=== PATIENT | male | born 1945 | race Hispanic/Latino ===

== ENCOUNTER 2017-10-29 10:49 | Observation (INO) | payer MEDICARE, BC ==
--- NOTE | 2017-10-29 11:41 | ED PDOC ---
HPI:STROKE - Time Time: 11:09 - Historian Historian: Patient - Chief Complaint Chief Complaint: Numbness - Onset Date: 10/20/17 Time: 15:00 - Timing Timing: Improved - TPA Positive for Contraindication: Yes Reason tPA is not being Administered: Out of window treatment - Notes: Notes:: Pt. with numbness and tingles to left upper and low lip and lower face around the lips. Pt. with no pain, weakness, headaches, dizziness, vision changes. No leg pain pain. L fingers also get the tingles when lips gets it. No abd pain, chest pain, dyspnea. Symptoms off and on sporadically and no trigger. Lasts 30 min. NIHSS Stroke Scale - Date/Time Evaluation Performed Date Performed: 10/29/17 Time Performed: 11:41 When Was NIHSS Performed: Baseline - How Severe is the Stroke Level of Consciousness: 0=Alert LOC to Questions: 0=Both comments correct LOC to commands: 0=Obeys both correctly Best Gaze: 0=Normal Facial: 0=Normal Motor Arm - Left: 0=No drift Motor Arm - Right: 0=No drift Motor Leg - Left: 0=No drift Motor Leg - Right: 0=No drift Limb Ataxia: 0=Absent Sensory: 0=Normal Best Language: 0=No aphasia Dysarthia: 0=Normal articulation Extinction & Inattention (Neglect): 0=Normal, no object rTPA Inclusion/Exclusion - Refusal of Treatment Patient Refused Treatment: No - Inclusion Criteria for Altepase Patient is 18 years or Older: Yes The Clinical Diagnosis of Ischemic Stroke That is Causing a Potentially Disabling Neurological Deficit: No Time of Onset is Well Established to be Less Than 270 Minute Before Treatment Would Begin: No Risk/Benefit Discussed With Patient/Family Member Present: No Past Medical History Reviewed: Nursing Documentation, Vital Signs Vital Signs: Last Vital Signs Temp 98.3 F 10/29/17 11:08 Pulse 95 H 10/29/17 11:08 Resp 20 10/29/17 11:08 BP 147/85 10/29/17 11:08 Pulse Ox 98 10/29/17 11:08 - Medical History PMH: Diabetes, HTN (hx), Hyperlipidemia - Surgical History Surgical History: No Surg Hx - Family History Family History: States: Unknown Family Hx - Living Arrangements Living Arrangements: With Family - Social History Alcohol: None Drugs: Denies - Immunization History Hx Tetanus Toxoid Vaccination: No Hx Influenza Vaccination: No - Allergies Allergies/Adverse Reactions: Allergies Allergy/AdvReac Type Severity Reaction Status Date / Time No Known Allergies Allergy Verified 10/29/17 11:30 Review of Systems ROS Statement: Except As Marked, All Systems Reviewed And Found Negative Neurological: Positive for: Numbness Physical Exam - Reviewed Nursing Documentation Reviewed: Yes Vital Signs Reviewed: Yes - Physical Exam Appears: Positive for: Non-toxic, No Acute Distress Head Exam: Positive for: ATRAUMATIC, NORMAL INSPECTION, NORMOCEPHALIC Skin: Positive for: Normal Color, Warm, DRY Eye Exam: Positive for: EOMI, Normal appearance, PERRL ENT: Positive for: Normal ENT Inspection Neck: Positive for: Normal, Painless ROM Cardiovascular/Chest: Positive for: Regular Rate, Rhythm Respiratory: Positive for: CNT, Normal Breath Sounds Gastrointestinal/Abdominal: Positive for: Normal Exam, Bowel Sounds, Soft. Negative for: Tenderness Back: Positive for: Normal Inspection. Negative for: L CVA Tenderness, R CVA Tenderness Extremity: Positive for: Normal ROM. Negative for: Tenderness, Pedal Edema Neurologic/Psych: Positive for: Alert, it communications specialist II-XII, Oriented. Negative for: Motor/Sensory Deficits, Aphasia, Facial Droop - Laboratory Results Result Diagrams: 10/29/17 11:48 10/29/17 11:48 Interpretation Of Abn Labs: 34 bun - ECG ECG: Positive for: Interpreted By Me, Viewed By Me ECG Rhythm: Positive for: Normal QRS, Normal ST Segment, Sinus Rhythm O2 Sat by Pulse Oximetry: 98 Pulse Ox Interpretation: Normal - Radiology X-Ray: Read By Radiologist X-Ray Interpretation: No Acute Disease - CT Scan/US ct Other Rad Studies (CT/US): Read By Radiologist Other Rad Interpretation: no acute - Progress ED Course And Treament: 1447: Spoke with Dr. Guevara. Will admit tele. Pt. with no symptoms currently. AAOx3. Disposition - Clinical Impression Clinical Impression: TIA (transient ischemic attack), Dehydration - Patient ED Disposition Is Patient to be Admitted: Yes Counseled Patient/Family Regarding: Studies Performed, Diagnosis - Disposition Disposition Time: 14:00 Condition: FAIR - Pt Status Changed To: Hospital Disposition Of: Observation - POA Present On Arrival: Poor Glycemic Control (mild)
[2017-10-29] MEDS: Sodium Chloride 0.9% 1,000 ML IV SCH ×3 (11:51→15:51)
[2017-10-29 12:34] LABS: BASO # 0.1 K/uL (0.0-0.2); BASO % 1.2 % (0.0-2.0); EOS # 0.3 K/uL (0.0-0.7); EOS % 3.5 % (0.0-4.0); HEMOGLOBIN 14.5 g/dL (12.0-18.0); LYMPH # 1.6 K/uL (1.0-4.3); LYMPH % 19.3 % (20.0-40.0); MEAN CORPUSCULAR HEMOGLOBIN 30.7 pg (27.0-31.0); MEAN CORPUSCULAR HGB CONC 34.1 g/dL (33.0-37.0); MEAN PLATELET VOLUME 7.8 fl (7.2-11.7); MONO # 0.5 K/uL (0.0-0.8); MONO % 6.3 % (0.0-10.0); NEUT # 5.8 K/uL (1.8-7.0); NEUT % 69.7 % (50.0-75.0); NRBC % 0.1 % (0.0-0.0); RBC 4.72 Mil/uL (4.40-5.90); RED CELL DISTRIBUTION WIDTH 12.9 % (11.5-14.5); WHITE BLOOD COUNT 8.3 K/uL (4.8-10.8)
--- NOTE | 2017-10-29 12:37 | CT ---
PROCEDURE: CT HEAD WITHOUT CONTRAST. HISTORY: eval for tia COMPARISON: None available. TECHNIQUE: Axial computed tomography images were obtained through the head/brain without intravenous contrast. Radiation dose: Total exam DLP = 1023.53 mGy-cm. This CT exam was performed using one or more of the following dose reduction techniques: Automated exposure control, adjustment of the mA and/or kV according to patient size, and/or use of iterative reconstruction technique. FINDINGS: HEMORRHAGE: No intracranial hemorrhage. BRAIN: No mass effect or edema. No atrophy or chronic microvascular ischemic changes. Widened CSF space in the midline posterior fossa representing either giant cisterna magna or arachnoid cyst. VENTRICLES: Unremarkable. No hydrocephalus. CALVARIUM: Unremarkable. PARANASAL SINUSES: Unremarkable as visualized. No significant inflammatory changes. MASTOID AIR CELLS: Unremarkable as visualized. No inflammatory changes. OTHER FINDINGS: None. IMPRESSION: No intracranial mass, hemorrhage or evidence of acute infarct. 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 Otherwise unremarkable examination
[2017-10-29 12:46] LABS: PARTIAL THROMBOPLASTIN TIME 33.2 Seconds (25.6-37.1)
[2017-10-29 12:50] LABS: ALB/GLOB RATIO 1.3 (1.0-2.1); ALBUMIN 4.2 g/dL (3.5-5.0); ALT/SGPT 35 U/L (21-72); AST/SGOT 39 U/L (17-59); BLOOD UREA NITROGEN 34 mg/dl (9-20); CALCIUM 9.8 mg/dL (8.4-10.2); GFR AFRICAN-AMERICAN > 60; GFR NON-AFRICAN AMERICAN 55; HDL CHOLESTEROL 37 MG/DL (30-70)
[2017-10-29 13:01] LABS: LDL CHOLESTEROL 89 mg/dL (0-129)
--- NOTE | 2017-10-29 13:10 | RAD ---
HISTORY: Code Stroke COMPARISON: No prior. FINDINGS: LUNGS: No active pulmonary disease. PLEURA: No significant pleural effusion identified, no pneumothorax apparent. CARDIOVASCULAR: Normal. OSSEOUS STRUCTURES: No significant abnormalities. VISUALIZED UPPER ABDOMEN: Normal. OTHER FINDINGS: None. IMPRESSION: No active disease.
--- NOTE | 2017-10-29 16:01 | CP.PCM.HP ---
History of Present Illness - History of Present Illness History of Present Illness: 72 y/o M with PMHx of DM, hyperlipidemia and HTN presented to ED c/o facial tingling around the lips and to less extent to the finger on the L/hand. Patient has had this symptoms for the past week but was getting worse. He admits similar symptoms in the past in the lips after dental procedures. Denies headache, weakness, blurry vision, CP, SOB. At the time of my exam paresthesias were almost completely resolved as per patient. He takes Glimepiride and Tricor and has not been on HTN meds for many years. Patient has been living in the area for only 1 year and has no PMD at this time. Present on Admission - Present on Admission Any Indicators Present on Admission: No Review of Systems - Review of Systems All systems: reviewed and no additional remarkable complaints except - Neurological Neurological: Paresthesias Past Patient History - Past Social History Alcohol: None Drugs: Denies - CARDIAC Hx Hypertension: Yes (hx) - ENDOCRINE/METABOLIC Hx Diabetes Mellitus Type 1: Yes - PSYCHIATRIC Hx Substance Use: No - SURGICAL HISTORY Hx Surgeries: Yes Hx Cholecystectomy: Yes Other/Comment: Urethra reconstruction. Chelecystectomy - ANESTHESIA Hx Anesthesia: Yes Hx Anesthesia Reactions: No Hx Malignant Hyperthermia: No Meds Allergies/Adverse Reactions: Allergies Allergy/AdvReac Type Severity Reaction Status Date / Time No Known Allergies Allergy Verified 10/29/17 11:30 Physical Exam - Constitutional Appears: Non-toxic, No Acute Distress - Head Exam Head Exam: ATRAUMATIC, NORMAL INSPECTION - Eye Exam Eye Exam: EOMI, Normal appearance, PERRL. absent: Nystagmus - ENT Exam ENT Exam: Mucous Membranes Moist - Neck Exam Neck exam: Positive for: Normal Inspection. Negative for: Tenderness - Respiratory Exam Respiratory Exam: Clear to Auscultation Bilateral, NORMAL BREATHING PATTERN. absent: Rales, Wheezes - Cardiovascular Exam Cardiovascular Exam: REGULAR RHYTHM, +S1, +S2. absent: Gallop - GI/Abdominal Exam GI & Abdominal Exam: Normal Bowel Sounds, Soft. absent: Firm, Rebound, Rigid, Tenderness - Extremities Exam Extremities exam: Positive for: full ROM. Negative for: calf tenderness, pedal edema, tenderness - Back Exam Back exam: absent: CVA tenderness (L), CVA tenderness (R) - Neurological Exam Neurological exam: Alert, CN II-XII Intact, Normal Gait, Oriented x3 - Psychiatric Exam Psychiatric exam: Normal Affect, Normal Mood - Skin Skin Exam: Normal Color, Warm Results - Vital Signs Recent Vital Signs: Last Vital Signs Temp 98.5 F 10/29/17 15:48 Pulse 78 10/29/17 15:48 Resp 16 10/29/17 15:48 BP 138/86 10/29/17 15:48 Pulse Ox 98 10/29/17 15:48 - Labs Result Diagrams: 10/30/17 04:20 10/30/17 04:20 Labs: Laboratory Results - last 24 hr 10/29/17 10/29/17 10/29/17 11:08 11:48 11:48 WBC 8.3 RBC 4.72 Hgb 14.5 Hct 42.5 MCV 90.0 MCH 30.7 MCHC 34.1 RDW 12.9 Plt Count 304 MPV 7.8 Neut % (Auto) 69.7 Lymph % (Auto) 19.3 L [place] % (Auto) 6.3 Eos % (Auto) 3.5 Baso % (Auto) 1.2 Neut # (Auto) 5.8 Lymph # (Auto) 1.6 [place] # (Auto) 0.5 Eos # (Auto) 0.3 Baso # (Auto) 0.1 PT INR APTT Sodium 142 Potassium 4.1 Chloride 101 Carbon Dioxide 26 Anion Gap 19 BUN 34 H Creatinine 1.3 Est GFR ( Amer) > 60 Est GFR (Non-Af Amer) 55 POC Glucose (mg/dL) 196 H Random Glucose 195 H Hemoglobin A1c Calcium 9.8 Total Bilirubin 0.6 AST 39 ALT 35 Alkaline Phosphatase 138 H Troponin I < 0.0120 Total Protein 7.5 Albumin 4.2 Globulin 3.3 Albumin/Globulin Ratio 1.3 Triglycerides 257 H Cholesterol 188 LDL Cholesterol Direct 89 HDL Cholesterol 37 Blood Type Antibody Screen BBK History Checked 10/29/17 10/29/17 10/29/17 11:48 11:48 11:48 WBC RBC Hgb Hct MCV MCH MCHC RDW Plt Count MPV Neut % (Auto) Lymph % (Auto) [place] % (Auto) Eos % (Auto) Baso % (Auto) Neut # (Auto) Lymph # (Auto) [place] # (Auto) Eos # (Auto) Baso # (Auto) PT 11.0 INR 1.0 APTT 33.2 Sodium Potassium Chloride Carbon Dioxide Anion Gap BUN Creatinine Est GFR ( Amer) Est GFR (Non-Af Amer) POC Glucose (mg/dL) Random Glucose Hemoglobin A1c 6.4 Calcium Total Bilirubin AST ALT Alkaline Phosphatase Troponin I Total Protein Albumin Globulin Albumin/Globulin Ratio Triglycerides Cholesterol LDL Cholesterol Direct HDL Cholesterol Blood Type O POSITIVE Antibody Screen Negative BBK History Checked No verified bt Assessment & Plan - Assessment and Plan (Free Text) Assessment: TIA CT of the head no ischemia Neurology consult appreciated: Will F/U recs VS stable Restart home meds S/P ASA 325 mg once at ED NIDDM Controlled HgbA1c 6.4 C/w current treatment HTN Controlled Monitor
--- NOTE | 2017-10-29 18:11 | MRI ---
PROCEDURE: MRI BRAIN WITHOUT CONTRAST HISTORY: TIA COMPARISON: None. TECHNIQUE: Multiplanar, multisequence MR images of the brain were obtained without intravenous contrast enhancement. FINDINGS: HEMORRHAGE: None DWI: No evidence of an acute or early subacute infarction. BRAIN PARENCHYMA: No mass effect or edema. No significant atrophy. There is mild periventricular white matter signal abnormality on FLAIR images as well as patchy foci of deep and subcortical white matter signal abnormality, consistent with microvascular ischemic change. There is also bilateral pontine white matter ischemic change. VENTRICLES: Unremarkable. No hydrocephalus. CRANIUM: Unremarkable. ORBITS: Grossly unremarkable. PARANASAL SINUSES/MASTOIDS: There is chronic bilateral maxillary sinusitis VASCULAR SYSTEM: Skull base flow voids intact. OTHER FINDINGS: None. IMPRESSION: No evidence of acute infarct. No intracranial mass or hemorrhage. Chronic white matter ischemic change. bilateral.
[2017-10-29] MEDS ORDERED: Glucagon Recombinant 1 mg Inj IM PRN (19:10)
[2017-10-29] MEDS ORDERED: Dextrose 50% SYRINGE Inj (50 ml) IVP PRN (19:10)
--- NOTE | 2017-10-29 20:19 | CON ---
NEUROLOGY CONSULT DATE: 10/29/2017 CHIEF COMPLAINT: Left facial numbness. HISTORY OF PRESENT ILLNESS: This is a 72-year-old man with a past medical history of hypertension, dyslipidemia and diabetes, who presented with numbness and tingling of the left upper and lower lip and left lower half of the face which was sporadic and no triggers. Symptoms last about 30 minutes. He currently denies any pronator drift, no focal muscle weakness. No changes in sense, vision, taste or smell. His A1c is 6.4. Triglycerides levels are elevated at 287 for which he is placed on Tricor. MRI of the brain showed no acute intracranial abnormality. He is currently stable. He had some mild elevation of the diastolic blood pressure, but otherwise he is stable at this time. He is on aspirin 81 mg for stroke prevention. He walking around without any difficulties. He is eating and swallowing water without any difficulties. PAST MEDICAL HISTORY: Type 2 diabetes mellitus, hypertension, and dyslipidemia. REVIEW OF SYSTEMS: A 14-point review of systems negative except in the HPI. SOCIAL HISTORY: No illicit drug use, smoking or EtOH abuse. FAMILY HISTORY: Noncontributory. MEDICATIONS: Reviewed by nurse reconciliation sheet. PHYSICAL EXAMINATION: VITAL SIGNS: Temperature 98.5, pulse rate 78, blood pressure 138/86, respiratory rate of 16 and oxygen saturation 98% by room air. GENERAL: Patient is sitting up in bed, in no acute distress. HEENT: Atraumatic and normocephalic. PERRLA. Extraocular muscles intact. NECK: Supple. No JVD, no adenopathy noted. LUNGS: Clear to auscultation. No adventitious sounds. HEART: S1 and S2, normal rate and rhythm. No murmurs, rubs or gallops. ABDOMEN: Soft, nontender and nondistended. Bowel sounds are present. EXTREMITIES: No clubbing. No cyanosis. Peripheral pulses 2+ felt bilaterally. NEUROLOGIC: The patient is alert and oriented to person, place, month and year. Speech is fluent without errors. Cranial nerves II through XII are intact. Motor exam: Moves all extremities equally. No pronator drift seen. Sensory exam: Light touch, pinprick and proprioception are intact bilaterally. DTRs are 2+ throughout. Coordination: Luiaqk-bo-yntd intact. Gait is normal. LABORATORY DATA: Sodium is 142, potassium 4.1, chloride 101, carbon-dioxide 26, BUN of 34, creatinine 1.3 and random glucose 195. A1c is 6.4. Triglyceride is 257, LDL is 89 and cholesterol is 188. ASSESSMENT AND PLAN: A 72-year-old man with history of hypertension, dyslipidemia, type 2 diabetes mellitus, hypertriglyceridemia. He had transient numbness of the left face likely secondary to mild diastolic hypertension. Otherwise, no focal deficits on examination. MRI of the brain showed no acute intracranial abnormality, likely his symptoms were a transient ischemic event. Recommend aspirin 81 mg, Lipitor 40 mg and Tricor for his hypertriglyceridemia and he is stable to go home once seen by PMD. Thank you for this consult. Warren Reyes MD
--- NOTE | 2017-10-30 02:53 | CARD ---
APPROVED REPORT EKG Measurement Heart [id number] <Conclusion> Normal sinus rhythm Normal ECG
[2017-10-30 05:35] LABS: BASO # 0.1 K/uL (0.0-0.2); BASO % 1.2 % (0.0-2.0); EOS # 0.3 K/uL (0.0-0.7); EOS % 4.7 % (0.0-4.0); HEMOGLOBIN 15.1 g/dL (12.0-18.0); LYMPH # 1.5 K/uL (1.0-4.3); LYMPH % 21.3 % (20.0-40.0); MEAN CELL VOLUME 89.3 fl (80.0-94.0); MEAN CORPUSCULAR HEMOGLOBIN 31.1 pg (27.0-31.0); MEAN CORPUSCULAR HGB CONC 34.8 g/dL (33.0-37.0); MEAN PLATELET VOLUME 7.7 fl (7.2-11.7); MONO # 0.7 K/uL (0.0-0.8); MONO % 9.3 % (0.0-10.0); NEUT # 4.4 K/uL (1.8-7.0); NEUT % 63.5 % (50.0-75.0); NRBC % 0.4 % (0.0-0.0); RBC 4.86 Mil/uL (4.40-5.90)
[2017-10-30 06:11] LABS: ALB/GLOB RATIO 1.3 (1.0-2.1); ALBUMIN 3.9 g/dL (3.5-5.0); ALT/SGPT 35 U/L (21-72); AST/SGOT 45 U/L (17-59); BLOOD UREA NITROGEN 29 mg/dl (9-20); CALCIUM 9.5 mg/dL (8.4-10.2); GFR AFRICAN-AMERICAN > 60; GFR NON-AFRICAN AMERICAN 55; HDL CHOLESTEROL 37 MG/DL (30-70)
[2017-10-30 06:22] LABS: LDL CHOLESTEROL 90 mg/dL (0-129)
[2017-10-30] MEDS ORDERED: Enoxaparin 40 mg Syringe SC SCH (09:00)
[2017-10-30] MEDS ORDERED: CITALOPRAM HYDROBROMIDE 20 MG PO SCH (09:00)
[2017-10-30] MEDS ORDERED: Multivitamin With Minerals Tab PO SCH (09:00)
[2017-10-30] MEDS ORDERED: Patient's Own Med (Multivitamin [Multi-Vitamin Daily] 1 TAB) PO SCH (09:00)
[2017-10-30] MEDS ORDERED: GlipiZIDE 5 mg SR Tab PO SCH (11:30)
[2017-10-30 12:12] VITALS: BP 155/86; PULSE 89; RESP 18; TEMP 98.3; O2SAT 95
--- NOTE | 2017-10-30 14:46 | CP.PCM.DIS ---
Provider - Provider Date of Admission: 10/29/17 14:49 Attending physician: Chris Guevara MD Consults: Neurology Time Spent in preparation of Discharge (in minutes): 30 Diagnosis - Discharge Diagnosis (1) Dehydration Status: Resolved Comment: Resolved. S/P IV fluids (2) TIA (transient ischemic attack) Status: Acute Comment: Symptoms resolved. Imaging studies negative for ischemia. Patient stable Hospital Course - Lab Results Lab Results: Most Recent Lab Values WBC 7.0 K/uL (4.8-10.8) 10/30/17 04:20 RBC 4.86 Mil/uL (4.40-5.90) 10/30/17 04:20 Hgb 15.1 g/dL (12.0-18.0) 10/30/17 04:20 Hct 43.4 % (35.0-51.0) 10/30/17 04:20 MCV 89.3 fl (80.0-94.0) 10/30/17 04:20 MCH 31.1 pg (27.0-31.0) H 10/30/17 04:20 MCHC 34.8 g/dL (33.0-37.0) 10/30/17 04:20 RDW 13.0 % (11.5-14.5) 10/30/17 04:20 Plt Count 309 K/uL (130-400) 10/30/17 04:20 MPV 7.7 fl (7.2-11.7) 10/30/17 04:20 Neut % (Auto) 63.5 % (50.0-75.0) 10/30/17 04:20 Lymph % (Auto) 21.3 % (20.0-40.0) 10/30/17 04:20 [place] % (Auto) 9.3 % (0.0-10.0) 10/30/17 04:20 Eos % (Auto) 4.7 % (0.0-4.0) H 10/30/17 04:20 Baso % (Auto) 1.2 % (0.0-2.0) 10/30/17 04:20 Neut # (Auto) 4.4 K/uL (1.8-7.0) 10/30/17 04:20 Lymph # (Auto) 1.5 K/uL (1.0-4.3) 10/30/17 04:20 [place] # (Auto) 0.7 K/uL (0.0-0.8) 10/30/17 04:20 Eos # (Auto) 0.3 K/uL (0.0-0.7) 10/30/17 04:20 Baso # (Auto) 0.1 K/uL (0.0-0.2) 10/30/17 04:20 PT 11.0 Seconds (9.8-13.1) 10/29/17 11:48 INR 1.0 (0.9-1.2) 10/29/17 11:48 APTT 33.2 Seconds (25.6-37.1) 10/29/17 11:48 Sodium 143 mmol/l (132-148) 10/30/17 04:20 Potassium 4.4 MMOL/L (3.6-5.0) 10/30/17 04:20 Chloride 104 mmol/L (98-107) 10/30/17 04:20 Carbon Dioxide 28 mmol/L (22-30) 10/30/17 04:20 Anion Gap 15 (10-20) 10/30/17 04:20 BUN 29 mg/dl (9-20) H 10/30/17 04:20 Creatinine 1.3 mg/dl (0.8-1.5) 10/30/17 04:20 Est GFR ( Amer) > 60 10/30/17 04:20 Est GFR (Non-Af Amer) 55 10/30/17 04:20 POC Glucose (mg/dL) 272 mg/dL (65-110) H 10/30/17 10:36 Random Glucose 106 mg/dL (75-110) 10/30/17 04:20 Hemoglobin A1c 6.4 % (4.2-6.5) 10/29/17 19:28 Calcium 9.5 mg/dL (8.4-10.2) 10/30/17 04:20 Total Bilirubin 0.6 mg/dl (0.2-1.3) 10/30/17 04:20 AST 45 U/L (17-59) 10/30/17 04:20 ALT 35 U/L (21-72) 10/30/17 04:20 Alkaline Phosphatase 116 U/L (38-126) 10/30/17 04:20 Troponin I < 0.0120 ng/mL (0.00-0.120) 10/29/17 19:28 Total Protein 6.9 G/DL (6.3-8.2) 10/30/17 04:20 Albumin 3.9 g/dL (3.5-5.0) 10/30/17 04:20 Globulin 3.0 gm/dL (2.2-3.9) 10/30/17 04:20 Albumin/Globulin Ratio 1.3 (1.0-2.1) 10/30/17 04:20 Triglycerides 176 mg/DL (0-149) H D 10/30/17 04:20 Cholesterol 174 mg/dL (0-199) 10/30/17 04:20 LDL Cholesterol Direct 90 mg/dL (0-129) 10/30/17 04:20 HDL Cholesterol 37 MG/DL (30-70) 10/30/17 04:20 Vitamin B12 775 pg/mL (239-931) 10/29/17 19:28 TSH 3rd Generation 1.83 mIU/ML (0.46-4.68) 10/29/17 19:28 Blood Type O POSITIVE 10/29/17 11:48 Blood Type Confirm O POSITIVE 10/29/17 15:35 Antibody Screen Negative 10/29/17 11:48 BBK History Checked No verified bt 10/29/17 11:48 - Hospital Course Hospital Course: 72 y/o M with PMHx of DM, hyperlipidemia and HTN admitted for TIA, evaluated by NEurology, imaging studies reveled no ischemia, symptoms resolved. He was also found to be slightly dehydrated and treated with IV fluids. Patient was evaluated by PT and is decided to be DC home after clinically stable with F/U as outpatient and C/w same med plan. Discharge Exam - Head Exam Head Exam: ATRAUMATIC, NORMAL INSPECTION - Eye Exam Eye Exam: EOMI, PERRL - ENT Exam ENT Exam: Mucous Membranes Moist - Respiratory Exam Respiratory Exam: Clear to PA & Lateral, NORMAL BREATHING PATTERN, UNREMARKABLE - Cardiovascular Exam Cardiovascular Exam: REGULAR RHYTHM, +S1, +S2. absent: Gallop - GI/Abdominal Exam GI & Abdominal Exam: Normal Bowel Sounds, Unremarkable - Extremities Exam Extremities exam: full ROM, normal capillary refill - Neurological Exam Neurological exam: Alert, CN II-XII Intact, Normal Gait, Oriented x3 - Psychiatric Exam Psychiatric exam: Normal Affect, Normal Mood - Skin Skin Exam: Normal Color, Warm Discharge Plan - Discharge Medications Prescriptions: Enalapril Maleate [Vasotec] 2.5 mg PO DAILY #30 tab - Follow Up Plan Condition: GOOD Disposition: HOME/ ROUTINE Patient education suggested?: Yes Instructions: Dehydration, Adult (DC), Transient Ischemic Attack (DC) Additional Instructions: pt. cleared for discharge to Home today by and cont. current meds - pt. states hes had hx myalgia with statins dr. Guevara aware cont ASA/Tricor added ASHLEY pt. will f/u with outpatient in 1 week Referrals: Chris Guevara MD [Staff Provider] - Warren Reyes MD [Staff Provider] -
--- NOTE | 2017-10-30 18:31 | CARD ---
APPROVED REPORT EXAM: Two-dimensional and M-mode echocardiogram with Doppler and color Doppler. Other Information Quality : GoodRhythm : NSR INDICATION CVA/TIA 2D DIMENSIONS IVSd1.31 (0.7-1.1cm)LVDd3.12 (3.9-5.9cm) LVOT Diameter2.56 (1.8-2.4cm)PWd1.31 (0.7-1.1cm) IVSs1.72 (0.8-1.2cm)LVDs2.22 (2.5-4.0cm) FS (%) 29.0 %PWs1.46 (0.8-1.2cm) LVEF (%)55.0 (>50%) M-Mode DIMENSIONS Left Atrium (MM)4.85 (2.5-4.0cm)IVSd0.94 (0.7-1.1cm) Aortic Root3.65 (2.2-3.7cm)LVDd6.38 (4.0-5.6cm) Aortic Cusp Exc.2.09 (1.5-2.0cm)PWd1.26 (0.7-1.1cm) IVSs1.88 cmFS (%) 47 % LVDs3.35 (2.0-3.8cm)PWs1.65 cm Mitral Valve MV E Apbibwmv59.2cm/sMV DECEL [id number] A Scanbxjx301.3cm/s MV JHG72dfV/A ratio0.4MVA (PHT)7.63cm2 TDI Lateral E' Peak V12.39cm/sMedial E' Peak V7.33cm/sE/Lateral E'3.2 E/Medial E'5.3 Pulmonary Valve PV Peak Frfbudrf393.4cm/s LEFT VENTRICLE The left ventricle is normal size. There is mild concentric left ventricular hypertrophy. The left ventricular function is normal. The left ventricular ejection fraction is within the normal range. There is normal LV segmental wall motion. Transmitral Doppler flow pattern is Grade I-abnormal relaxation pattern. RIGHT VENTRICLE The right ventricle is normal size. There is normal right ventricular wall thickness. The right ventricular systolic function is normal. ATRIA The left atrium is mildly dilated. The right atrium size is normal. AORTIC VALVE The aortic valve is moderately thickened. No aortic regurgitation is present. There is no aortic valvular stenosis. MITRAL VALVE The mitral valve is mildly thickened. There is no mitral valve stenosis. There is no mitral valve regurgitation noted. TRICUSPID VALVE The tricuspid valve is normal in structure. There is no tricuspid valve regurgitation noted. PULMONIC VALVE The pulmonary valve is normal in structure. There is no pulmonic valvular regurgitation. GREAT VESSELS The aortic root is normal in size. The IVC was not visualized. PERICARDIAL EFFUSION There is a small loculated anterior pericardial effusion. <Conclusion> The left ventricle is normal size. There is mild concentric left ventricular hypertrophy. The left ventricular function is normal. The left ventricular ejection fraction is within the normal range. There is normal LV segmental wall motion. Transmitral Doppler flow pattern is Grade I-abnormal relaxation pattern.
== END 2017-10-30 15:20 | disposition home or self-care (01) ==
LOC: H.ER 10:49 → H.ERHOLD 14:49 → H.TEL 18:53
PROVIDERS: ADMIT Internal Medicine; ATTEND Internal Medicine
DX: G45.9 Transient cerebral ischemic attack, unspecified (principal); E86.0 Dehydration; E11.9 Type 2 diabetes mellitus without complications; E78.1 Pure hyperglyceridemia; E78.5 Hyperlipidemia, unspecified; I10 Essential (primary) hypertension
CPT/HCPCS: 36415; 70450; 70551; 71045; 80053; 80061; 82607; 82948; 83036; 84443; 84484; 85025; 85610; 85730; 86850; 86900; 93005; 93306; 96360; 96361; 97166; 99283; G0378; G8987; G8988; G8989; J1650; J7040